=== PATIENT | female | born 1970 | race Caucasian/White ===

== ENCOUNTER 2016-08-29 11:43 | Emergency (ER) | payer OTHER ==
[~2016-08-29] VITALS: Ht 121.9 cm; Wt 48.0 kg
[~2016-08-29 11:43] MED LIST: BENT20TA PO; ZOFR4TAB3 SL
[2016-08-29 11:59] VITALS: BP 108/69; PULSE 90; RESP 16; TEMP 98.1
[2016-08-29 12:06] VITALS: PULSE 78
--- NOTE | 2016-08-29 13:08 | PD ---
HPI . Lobo Act due to suicidal threats Chief Complaint: Psychiatric Symptoms Time Seen by Provider: 13:08 Travel History International Travel<30 days: No Contact w/Intl Traveler<30days: No Traveled to known affect area: No History of Present Illness HPI 45-year-old female with history of anxiety and tobaccoism here under Lobo act for suicidal threats towards her employer. Patient tells me that she lost her about a year and a half ago and has never dealt with his passing. She says that she decided to have approximately 6 beers last night and was hung over and couldn't make it to work. She decided to call in and somehow ended up at her job. At that point she made threats towards her employer and told them she would be in the morning. Patient was consequently Lobo acted. She is here now complaining of cough she's had for several days. She tells me is keeping her up at night. She denies any fever or chills. She has no other cold or flulike symptom complaints. She goes on to tell me that she was joking and had no intention of committing suicide. She is asking me how long her visit will take and if she will be out here in the next few hours she has things to do. She currently has a sitter with her. She is very loud and yelling in the room. She tells me, "I am a chihuahua and I am mean." PFSH Past Medical History Depression: Yes Diminished Hearing: No Tetanus Vaccination: Unknown ?: Not Past Surgical History Section: Yes (x2) Hysterectomy: Yes Tonsillectomy: Yes Social History Alcohol Use: Yes (4 beers last night and 1 today) Tobacco Use: Yes (1 ppd, 0800 today) Substance Use: No Allergies-Medications (Allergen,Severity, Reaction): Coded Allergies: Aspirin (Verified Allergy, Severe, SOB, 01/25/16) Sulfa (Verified Allergy, Mild, HIVES, 01/25/16) Penicillin (Verified Allergy, Unknown, 01/25/16) Reported Meds & Prescriptions Reported Meds & Active Scripts Active Proair Hfa 8.5 GM Inh (Albuterol Sulfate) 90 Mcg/Act Aer 2 Puff INH Q6H PRN 108 mcg/actuation Tessalon Perles (Benzonatate) 100 Mg Cap 100 Mg PO TID PRN 3 Days Macrobid (Nitrofurantoin Monohydrate Macrocrystals) 100 Mg Capsule 100 Mg PO BID 7 Days Prednisone 50 Mg Tab 50 Mg PO DAILY Bentyl (Dicyclomine HCl) 20 Mg Tab 20 Mg PO QID Zofran Odt (Ondansetron Odt) 4 Mg Tab 4 Mg SL Q6HR PRN Review of Systems General / Constitutional: No: Fever Eyes: No: Visual changes HENT: No: Headaches Cardiovascular: No: Chest Pain or Discomfort Respiratory: No: Shortness of Breath Gastrointestinal: No: Abdominal Pain Genitourinary: No: Dysuria Musculoskeletal: No: Pain Skin: No Rash Neurologic: No: Weakness Psychiatric: Positive: Anxiety, Depression, Suicidal Ideations Endocrine: No: Polydipsia Hematologic/Lymphatic: No: Easy Bruising Physical Exam Narrative GENERAL: AAO x 3, no acute distress, Well-nourished, well-developed patient. SKIN: Warm and dry. No visible rashes or bruising. HEAD: Normocephalic and atraumatic. EYES: No scleral icterus. No injection or drainage. EOM intact, PERRLA ENT: No nasal drainage noted. Mucous membranes pink. Airway patent. Mild posterior pharynx erythema without edema or exudates. Her knees with mild cerumen buildup bilaterally. NECK: Supple, trachea midline. No JVD. Neuropathy CARDIOVASCULAR: Regular rate and rhythm without murmurs, gallops, or rubs. RESPIRATORY: Breath sounds equally diminished bilaterally. She has scattered mild inspiratory wheezing bilaterally. No rhonchi or Rales GASTROINTESTINAL: Abdomen soft, non-tender, nondistended. EXTREMITIES: No cyanosis or edema. BACK: Nontender without obvious deformity. No CVA tenderness. NEURO: CN II through XII intact, access control officer strength equal bilaterally, upper and lower extremity strength 5 out of 5, no focal neuro deficits PSYCH: AAO x 3, anxious Data Data Last Documented VS Vital Signs Date Time Temp Pulse Resp B/P Pulse Ox O2 Delivery O2 Flow Rate FiO2 08/29/16 12:06 78 08/29/16 11:59 98.1 16 108/69 Orders Complete Blood Count With Diff (08/29/16 13:14) Comprehensive Metabolic Panel (08/29/16 13:14) Urinalysis - C+S If Indicated (08/29/16 13:14) Psych Screen (08/29/16 13:14) Drug Screen, Random Urine (08/29/16 13:14) Alcohol (Ethanol) (08/29/16 13:14) Chest, Single Ap (08/29/16 13:14) Nicotine 14 Mg Patch.24 Hr (Habitrol 14 (08/29/16 13:30) Lorazepam Inj (Ativan Inj) (08/29/16 13:30) Urine Culture (08/29/16 13:00) Labs Laboratory Tests Test 08/29/16 13:00 White Blood Count 12.0 TH/MM3 Red Blood Count 4.16 MIL/MM3 Hemoglobin 13.5 GM/DL Hematocrit 39.6 % Mean Corpuscular Volume 95.2 FL Mean Corpuscular Hemoglobin 32.5 PG Mean Corpuscular Hemoglobin 34.1 % Concent Red Cell Distribution Width 13.2 % Platelet Count 281 TH/MM3 Mean Platelet Volume 9.2 FL Neutrophils (%) (Auto) 78.6 % Lymphocytes (%) (Auto) 14.6 % Monocytes (%) (Auto) 6.0 % Eosinophils (%) (Auto) 0.0 % Basophils (%) (Auto) 0.8 % Neutrophils # (Auto) 9.4 TH/MM3 Lymphocytes # (Auto) 1.7 TH/MM3 Monocytes # (Auto) 0.7 TH/MM3 Eosinophils # (Auto) 0.0 TH/MM3 Basophils # (Auto) 0.1 TH/MM3 CBC Comment DIFF FINAL Differential Comment Urine Color YELLOW Urine Turbidity HAZY Urine pH 6.0 Urine Specific [place] 1.010 Urine Protein 30 mg/dL Urine Glucose (UA) NEG mg/dL Urine Ketones NEG mg/dL Urine Occult Blood NEG Urine Nitrite POS Urine Bilirubin NEG Urine Urobilinogen LESS THAN 2.0 MG/DL Urine Leukocyte Esterase LARGE Urine RBC 1 /hpf Urine WBC 120 /hpf Urine Squamous Epithelial 7 /hpf Cells Urine Bacteria MANY /hpf Urine Hyaline Casts 1 /lpf Microscopic Urinalysis Comment CULTURE INDICATED Sodium Level 135 MEQ/L Potassium Level 3.5 MEQ/L Chloride Level 98 MEQ/L Carbon Dioxide Level 27.1 MEQ/L Anion Gap 10 MEQ/L Blood Urea Nitrogen 2 MG/DL Creatinine 0.70 MG/DL Estimat Glomerular Filtration 90 ML/MIN Rate Random Glucose 120 MG/DL Calcium Level 8.4 MG/DL Total Bilirubin 0.2 MG/DL Aspartate Amino Transf 21 U/L (AST/SGOT) Alanine Aminotransferase 32 U/L (ALT/SGPT) Alkaline Phosphatase 76 U/L Total Protein 7.7 GM/DL Albumin 4.0 GM/DL Urine Opiates Screen NEG Urine Barbiturates Screen NEG Urine Amphetamines Screen NEG Urine Benzodiazepines Screen NEG Urine Cocaine Screen NEG Urine Cannabinoids Screen NEG Ethyl Alcohol Level 299 MG/DL MDM Medical Decision Making Medical Screen Exam Complete: Yes Emergency Medical Condition: Yes Medical Record Reviewed: Yes Differential Diagnosis Suicidal ideation, anxiety, depression, grief reaction Narrative Course This is a 45-year-old female here under Lobo act. Patient does report frequent coughing for the past several days. Does have very slight inspiratory wheezing on physical exam. I will check a chest x-ray to make sure there is no acute infectious process. This appears to be a case of bronchitis and she does have a longstanding smoking history. If there are no acute findings on the chest x-ray, I will go ahead and treat her with a course of steroids. Labs have been ordered and if they are within normal limits, she will be cleared for psych screen. She was given ativan as she was very loud and disruptive to staff and other patients. Last Impressions Chest X-Ray 08/29/16 1314 Signed Impressions: Service Date/Time: August 13:36 - CONCLUSION: 1. No acute cardiopulmonary disease. Jef Raza MD Laboratory Tests Test 08/29/16 13:00 White Blood Count 12.0 TH/MM3 Red Blood Count 4.16 MIL/MM3 Hemoglobin 13.5 GM/DL Hematocrit 39.6 % Mean Corpuscular Volume 95.2 FL Mean Corpuscular Hemoglobin 32.5 PG Mean Corpuscular Hemoglobin 34.1 % Concent Red Cell Distribution Width 13.2 % Platelet Count 281 TH/MM3 Mean Platelet Volume 9.2 FL Neutrophils (%) (Auto) 78.6 % Lymphocytes (%) (Auto) 14.6 % Monocytes (%) (Auto) 6.0 % Eosinophils (%) (Auto) 0.0 % Basophils (%) (Auto) 0.8 % Neutrophils # (Auto) 9.4 TH/MM3 Lymphocytes # (Auto) 1.7 TH/MM3 Monocytes # (Auto) 0.7 TH/MM3 Eosinophils # (Auto) 0.0 TH/MM3 Basophils # (Auto) 0.1 TH/MM3 CBC Comment DIFF FINAL Differential Comment Urine Color YELLOW Urine Turbidity HAZY Urine pH 6.0 Urine Specific [place] 1.010 Urine Protein 30 mg/dL Urine Glucose (UA) NEG mg/dL Urine Ketones NEG mg/dL Urine Occult Blood NEG Urine Nitrite POS Urine Bilirubin NEG Urine Urobilinogen LESS THAN 2.0 MG/DL Urine Leukocyte Esterase LARGE Urine RBC 1 /hpf Urine WBC 120 /hpf Urine Squamous Epithelial 7 /hpf Cells Urine Bacteria MANY /hpf Urine Hyaline Casts 1 /lpf Microscopic Urinalysis Comment CULTURE INDICATED Sodium Level 135 MEQ/L Potassium Level 3.5 MEQ/L Chloride Level 98 MEQ/L Carbon Dioxide Level 27.1 MEQ/L Anion Gap 10 MEQ/L Blood Urea Nitrogen 2 MG/DL Creatinine 0.70 MG/DL Estimat Glomerular Filtration 90 ML/MIN Rate Random Glucose 120 MG/DL Calcium Level 8.4 MG/DL Total Bilirubin 0.2 MG/DL Aspartate Amino Transf 21 U/L (AST/SGOT) Alanine Aminotransferase 32 U/L (ALT/SGPT) Alkaline Phosphatase 76 U/L Total Protein 7.7 GM/DL Albumin 4.0 GM/DL Urine Opiates Screen NEG Urine Barbiturates Screen NEG Urine Amphetamines Screen NEG Urine Benzodiazepines Screen NEG Urine Cocaine Screen NEG Urine Cannabinoids Screen NEG Ethyl Alcohol Level 299 MG/DL Patient declined influenza testing. She tells the nurse that all she wants is something for her cough such as Tessalon Perles. Labs reviewed and reveal a urinary tract infection, which I have provided Macrobid for. By examination she also has bronchitis and I started her on steroids, Tessalon Perles and an inhaler as needed. Patient is now medically clear for psych screen. Diagnosis Primary Impression: Suicidal behavior Qualified Code: R46.89 - Suicidal behavior without attempted self-injury Additional Impressions: UTI (urinary tract infection) Qualified Code: N39.0 - Urinary tract infection without hematuria, site unspecified Acute bronchitis Qualified Code: J20.9 - Acute bronchitis, unspecified organism Scripts Albuterol 8.5 GM Inh (Proair Hfa 8.5 GM Inh)90 Mcg/Act Aer2 Puff INH Q6H PRN ( SHORTNESS OF BREATH) #1 INHALER Ref 0 108 mcg/actuation Prov:Yady Herrera MD 08/29/16 Benzonatate (Tessalon Perles)100 Mg Pkg565 Mg PO TID PRN (COUGH) 3 Days Ref 0 Prov:Yady Herrera MD 08/29/16 Nitrofurantoin Monohydrate Macrocrystals (Macrobid)100 Mg Basbzgn781 Mg PO BID 7 Days Ref 0 Prov:Yady Herrera MD 08/29/16 Prednisone 50 Mg Tab50 Mg PO DAILY #5 TAB Prov:Yady Herrera MD 08/29/16 Condition: Stable Gi Pan Aug 29, 2016 13:08
[2016-08-29] MEDS ORDERED: LORazepam 2 MG/ML VIAL IM ONE (13:30)
[2016-08-29] MEDS ORDERED: NICOTINE 14 MG/24 HR PATCH T-DERMAL ONE (13:30)
[2016-08-29 13:47] LABS: AUTOMATED NEUTROPHIL # 9.4 TH/MM3 (1.8-7.7); BASOPHIL # 0.1 TH/MM3 (0-0.2); BASOPHIL % 0.8 % (0.0-2.0); HEMATOCRIT 39.6 % (35.0-46.0); HEMO FLAGS DIFF FINAL; LYMPH % 14.6 % (9.0-44.0); LYMPHOCYTE # 1.7 TH/MM3 (1.0-4.8); MEAN CELL VOLUME 95.2 FL (80.0-100.0); MEAN CORPUSCULAR HEMOGLOBIN 32.5 PG (27.0-34.0); MEAN CORPUSCULAR HGB CONC 34.1 % (32.0-36.0); NEUT % 78.6 % (16.0-70.0); PLATELET COUNT 281 TH/MM3 (150-450); RED BLOOD COUNT 4.16 MIL/MM3 (4.00-5.30); RED CELL DISTRIBUTION WIDTH 13.2 % (11.6-17.2)
[2016-08-29 13:50] LABS: BACTERIA, URINE MANY /hpf; BLOOD, URINE NEG (NEG); COMMENT (UR) CULTURE INDICATED; CULTURE IF INDICATED CULTURE INDICATED; GLUCOSE,URINE NEG (NEG); HYALINE CAST, URINE 1 /lpf (RARE); KETONE, URINE NEG (NEG); SQUAMOUS EPITHELIAL CELL URINE 7 /hpf (0-5); URINE COLOR YELLOW (YELLW/STRAW)
[2016-08-29 13:53] LABS: NITRITE,URINE POS (NEG)
[2016-08-29 14:02] LABS: ALT (GPT) 32 U/L (10-53); ANION GAP 10 MEQ/L (5-15); AST (GOT) 21 U/L (15-37); BICARBONATE 27.1 MEQ/L (21.0-32.0); BLOOD UREA NITROGEN 2 MG/DL (7-18); CHLORIDE 98 MEQ/L (98-107); GLOMERULAR FILTRATION RATE 90 ML/MIN (>89); POTASSIUM 3.5 MEQ/L (3.5-5.1); SODIUM (NA) 135 MEQ/L (136-145)
[2016-08-29 14:04] LABS: ALKALINE PHOSPHATASE 76 U/L (45-117); TOTAL BILIRUBIN ADULT 0.2 MG/DL (0.2-1.0)
[2016-08-29 14:08] LABS: AMPHETAMINE, URINE NEG (NEG); BARBITURATES, URINE NEG (NEG); COCAINE, URINE NEG (NEG)
--- NOTE | 2016-08-29 14:13 | RADRPT ---
EXAM DATE/TIME: 08/29/2016 13:36 [facility] COMPARISON: No previous studies available for comparison. INDICATIONS : Shortness of breath and cough. MEDICAL HISTORY : None. SURGICAL HISTORY : None. ENCOUNTER: Initial ACUITY: 1 month PAIN SCORE: 0/10 LOCATION: Bilateral chest FINDINGS: A single view of the chest demonstrates the lungs to be symmetrically aerated without evidence of mas s, infiltrate or effusion. The cardiomediastinal contours are unremarkable. Osseous structures are intact. Subtle S-shaped scoliosis of the thoracic spine. CONCLUSION: 1. No acute cardiopulmonary disease. Jef Raza MD on August 29, 2016 at 14:10 Board Certified Radiologist. This report was verified electronically.
[2016-08-29] MEDS ORDERED: PRED50 PO (14:51)
[2016-08-29] MEDS ORDERED: MACR100C2 PO (14:51)
[2016-08-29] MEDS ORDERED: ALBUAER3 INH (14:51)
[2016-08-29] MEDS ORDERED: BENZ100 PO (14:51)
[2016-08-29 18:35] VITALS: BP 101/75; PULSE 106; RESP 18; TEMP 98.5; O2SAT 98
[2016-08-29] MEDS ORDERED: diphenhydrAMINE HCL 50 MG CAP PO PRN (21:00)
[2016-08-29 22:46] VITALS: BP 113/66; PULSE 110; RESP 18; O2SAT 98
[2016-08-30 02:45] VITALS: BP 135/93; PULSE 93; RESP 20
[2016-08-30] MEDS ORDERED: MACR100C2 PO (17:34)
[2016-08-30] MEDS ORDERED: BENZ100 PO (17:34)
[2016-08-30] MEDS ORDERED: PRED50 PO (17:34)
[2016-08-30] MEDS ORDERED: ALBUAER3 INH (17:34)
== END 2016-08-30 06:11 ==
LOC: NEPD 11:43 → NEPJ 08-30 06:11
DX: R45.851 Suicidal ideations (principal); N39.0 Urinary tract infection, site not specified; B96.20 Unspecified Escherichia coli [E. coli] as the cause of diseases classified elsewhere; J20.9 Acute bronchitis, unspecified; F17.200 Nicotine dependence, unspecified, uncomplicated
CPT/HCPCS: 71010; 80053; 80307; 81001; 85025; 87077; 87086; 87186; 96372; 99284; J2060; Q0163

== ENCOUNTER 2016-09-04 11:50 | Inpatient (IN) | payer SELFPAY ==
[~2016-09-04] VITALS: Ht 157.5 cm; Wt 60.5 kg
[2016-09-04] VITALS (10 sets, daily range): BP systolic 110–123; BP diastolic 81–111; PULSE 79–97; RESP 20; TEMP 97.2–99.1; O2SAT 100
[~2016-09-04 11:50] MED LIST changes: +ALBUAER3 INH; +BENZ100 PO; +MACR100C2 PO; +PRED50 PO; +SODIUM BICARBONATE 8.4% INJ 50 MEQ/50 ML SYR IV ONE
[2016-09-04] MEDS ORDERED: ceFAZolin 2 GM PREMIX 50 ML ONE (12:00)
[2016-09-04] MEDS ORDERED: ceFAZolin 2 GM PREMIX 50 ML IV STA (12:22)
[2016-09-04] MEDS ORDERED: DIPHTH/TETANUS/ACEL PERTUSSIS (BOOSTER) 0.5 ML VIAL/PFS IM ONE (12:22)
[2016-09-04 12:23] LABS: BASOPHIL # 0.1 TH/MM3 (0-0.2); BASOPHIL % 0.5 % (0.0-2.0); EOSINOPHIL % 0.2 % (0.0-4.0); HEMATOCRIT 37.8 % (35.0-46.0); LYMPH % 27.9 % (9.0-44.0); LYMPHOCYTE # 4.3 TH/MM3 (1.0-4.8); MEAN CELL VOLUME 98.3 FL (80.0-100.0); MEAN CORPUSCULAR HEMOGLOBIN 32.6 PG (27.0-34.0); MEAN CORPUSCULAR HGB CONC 33.2 % (32.0-36.0); MONO % 6.5 % (0.0-8.0); NEUT % 64.9 % (16.0-70.0); PLATELET COUNT 377 TH/MM3 (150-450); RED BLOOD COUNT 3.85 MIL/MM3 (4.00-5.30); RED CELL DISTRIBUTION WIDTH 13.8 % (11.6-17.2); WHITE BLOOD COUNT 15.4 TH/MM3 (4.0-11.0)
[2016-09-04 12:24] LABS: HEMO FLAGS AUTO DIFF
[2016-09-04 12:25] LABS: I-STAT POTASSIUM 3.5 MMOL/L (3.5-4.9)
[2016-09-04 12:27] LABS: APTT (PATIENT) 26.9 SEC (24.3-30.1); PROTHROMBIN TIME - PATIENT 10.8 SEC (9.8-11.6)
[2016-09-04] MEDS ORDERED: PHENYLEPHRINE HCL 10 MG/ML VIAL ONE (12:27)
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
[2016-09-04] MEDS ORDERED: MISCELLANEOUS NURSING INFORMATION XX SCH (12:45)
[2016-09-04] MEDS ORDERED: SENNOSIDES 8.6 MG TAB PO PRN (12:45)
[2016-09-04] MEDS ORDERED: BISACODYL 10 MG SUPP RECTAL PRN (12:45)
[2016-09-04] MEDS ORDERED: LACTULOSE SYRUP 20 GM/30 ML CUP PO PRN (12:45)
[2016-09-04] MEDS ORDERED: CHLORHEXIDINE GLUCONATE 2 % 1 PACK (2 CLOTHS) TOP PRN (12:45)
[2016-09-04] MEDS ORDERED: MAGNESIUM HYDROXIDE SUSP 30 ML CUP PO PRN (12:45)
[2016-09-04] MEDS ORDERED: SODIUM CHLORIDE 0.9% FLUSH 10 ML FLUSH IV FLUSH PRN (12:45)
[2016-09-04 12:56] LABS: BANDS 10 % (0-6); BASOPHILS 1 % (0-2); CORRECTED NUCLEATED RBC 3 /100 WBC (0-0); METAMYELOCYTES 3 % (0-1); POLYS (SEG NEUTROPHILS) 52 % (16-70); SCAN/DIFF FINAL DIFF MANUAL; WBC DIFF SAMPLE 100
[2016-09-04] MEDS: DOCUSATE SODIUM 50 MG/SENNA 8.6 MG TAB PO SCH ×2 (13:00→21:00)
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
[2016-09-04] MEDS ORDERED: PROPOFOL 1000 MG/100 ML INJ 100 ML ONE (13:15)
[2016-09-04] MEDS ORDERED: levETIRAcetam 1000 MG INJ 100 ML IV STA (13:28)
[2016-09-04] MEDS ORDERED: PROPOFOL 1000 MG/100 ML INJ 100 ML IV SCH (13:30)
[2016-09-04 13:57] LABS: BICARBONATE 16.2 MEQ/L (21.0-32.0); CALCIUM-PROTEIN CORRECTED 7.5 MG/DL (8.5-10.1); MAGNESIUM 2.2 MG/DL (1.5-2.5); TOTAL BILIRUBIN ADULT 0.2 MG/DL (0.2-1.0)
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
[2016-09-04 14:02] LABS: AUTOMATED NEUTROPHIL # 13.5 TH/MM3 (1.8-7.7); BASOPHIL % 0.1 % (0.0-2.0); EOSINOPHIL % 0.2 % (0.0-4.0); HEMATOCRIT 35.1 % (35.0-46.0); HEMO FLAGS DIFF FINAL; LYMPH % 6.1 % (9.0-44.0); LYMPHOCYTE # 0.9 TH/MM3 (1.0-4.8); MEAN CELL VOLUME 98.6 FL (80.0-100.0); MEAN CORPUSCULAR HEMOGLOBIN 32.1 PG (27.0-34.0); MEAN CORPUSCULAR HGB CONC 32.6 % (32.0-36.0); MONO % 3.5 % (0.0-8.0); NEUT % 90.1 % (16.0-70.0); PLATELET COUNT 377 TH/MM3 (150-450); RED BLOOD COUNT 3.56 MIL/MM3 (4.00-5.30); RED CELL DISTRIBUTION WIDTH 13.3 % (11.6-17.2)
[2016-09-04 14:11] LABS: APTT (PATIENT) 23.9 SEC (24.3-30.1); PROTHROMBIN TIME - PATIENT 10.8 SEC (9.8-11.6)
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
[2016-09-04 15:05] LABS: BLOOD GAS BASE EXCESS -12.9 mmol/L (-2-2); BLOOD GAS CARBOXYHEMOGLOBIN 4.4 % (0-4); BLOOD GAS HCO3 14 mmol/L (22-26); BLOOD GAS METHEMOGLOBIN 1.1 % (0-2); BLOOD GAS O2 HGB SATURATION 94 % (90-100); BLOOD GAS OXYGEN CONTENT 16.2 Vol % (12.0-20.0); BLOOD GAS PCO2 37 mmHg (38-42); BLOOD GAS PO2 490 mmHg (61-120); BLOOD GAS TOTAL HGB 11.3 G/DL (12.0-16.0); TEMP CORR TO 98.6
[2016-09-04 15:06] LABS: CRITICAL VALUE YES; OXYGEN DEVICE VENT
[2016-09-04 15:07] LABS: DRAW SITE ALINE; FIO2 100 %; STAT YES; VENT SETTINGS AC/20/550/5PEEP
--- NOTE | 2016-09-04 15:26 | RADRPT ---
EXAM DATE/TIME: 09/04/2016 14:34 [facility] COMPARISON: No previous studies available for comparison. INDICATIONS : Evaluate for OG tube placement. MEDICAL HISTORY : Unobtainable. SURGICAL HISTORY : Unobtainable. ENCOUNTER: Subsequent ACUITY: 1 day PAIN SCORE: Non-responsive. LOCATION: Chest FINDINGS: The nasogastric tube is coiled in the stomach with its tip directed towards the fundus. CONCLUSION: Nasogastric tube is coiled in the stomach with its tip directed into the gastric fundus. Loyd Holt MD on September 04, 2016 at 15:20 Board Certified Radiologist. This report was verified electronically.
[2016-09-04] MEDS ORDERED: NOREPINEPHRINE 4 MG/4 ML AMP ONE (15:47)
[2016-09-04] MEDS ORDERED: CALCIUM GLUCONATE INJ 2 GM in DEXTROSE 5% IN WATER 100ML INJ 100 ML IV ONE ×2 (16:00)
[2016-09-04] MEDS: PIPERACIL-TAZO 3.375 GM PREMIX 50 ML IV SCH ×2 (16:06→21:25)
[2016-09-04] MEDS: SODIUM CHLORIDE 0.9% FLUSH 10 ML FLUSH IV FLUSH SCH ×2 (16:07→21:25)
[2016-09-04] MEDS: SODIUM CHLOR 0.9% 1000 ML INJ 1,000 ML IV SCH ×2 (16:08→23:00)
[2016-09-04] MEDS: PANTOPRAZOLE SODIUM 40 MG VIAL IV SCH (17:18)
--- NOTE | 2016-09-04 17:33 | PD.PROCEDR ---
Central Line Procedure REASON FOR PROCEDURE Central venous access PROCEDURE PERFORMED Central line placement: Left femoral vein CONSENT Informed consent for procedure was not obtained as this was an emergent procedure following cardiac arrest ANESTHESIA None as patient nonresponsive following CPR DESCRIPTION OF THE PROCEDURE The patient was placed in supine position. The area was exposed and cleansed with ChloraPrep, times two. Large sterile drape was used to cover the patient, with the site exposed, under sterile conditions including cap, face mask, sterile gown, and sterile gloves. On single attempt, the introducer needle was inserted with negative pressure in syringe and venous flash was obtained. The guide wire was then advanced without any restriction and the needle was removed. The dilator was used without any complications. Using Seldinger technique a 20 cm antimicrobial coated triple lumen catheter was advanced over the guide wire to a depth of 19 centimeters. The guide wire was removed. All ports were aspirated with dark venous blood return and flushed easily with sterile saline. All ports were capped. Antibiotic disc was placed around central line at puncture site. The central line was secured to the skin with two interrupted 2.0 silk sutures. The area was bandaged with sterile see- through central line bandage. COMPLICATIONS: No apparent complications ESTIMATED BLOOD LOSS: 2 cc. Kamlesh Powell MD Sep 04, 2016 17:33
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
[2016-09-04] MEDS: CHLORHEXIDINE 0.12% (ORAL KIT) 15 ML CUP MT SCH (20:00)
[2016-09-04 20:12] LABS: BLOOD GAS BASE EXCESS -6.1 mmol/L (-2-2); BLOOD GAS CARBOXYHEMOGLOBIN 0.9 % (0-4); BLOOD GAS HCO3 19 mmol/L (22-26); BLOOD GAS METHEMOGLOBIN 1.1 % (0-2); BLOOD GAS O2 HGB SATURATION 98 % (90-100); BLOOD GAS OXYGEN CONTENT 16.8 Vol % (12.0-20.0); BLOOD GAS PCO2 35 mmHg (38-42); BLOOD GAS PO2 258 mmHg (61-120); BLOOD GAS TOTAL HGB 11.8 G/DL (12.0-16.0); CRITICAL VALUE NO; OXYGEN DEVICE VENTILATOR; TEMP CORR TO 98.6
[2016-09-04 20:13] LABS: DRAW SITE ART LINE; FIO2 50 %; STAT NO; VENT SETTINGS AC/20/500/PEEP5
[2016-09-04] MEDS ORDERED: PHENYLEPHRINE 40 MG/D5W 496 ML ADMIX IV SCH ×2 (20:15)
[2016-09-04] MEDS ORDERED: NOREPINEPHRINE 4 MG/D5W 250 ML IV SCH (20:15)
[2016-09-04] MEDS ORDERED: TERBUTALINE INJ 1 MG/ML AMP SQ PRN (20:15)
[2016-09-04] MEDS ORDERED: PHENYLEPHRINE INJ 40 MG in SODIUM CHLORID 0.9% 500 ML INJ 496 ML IV SCH (20:38)
[2016-09-04] MEDS ORDERED: NOREPINEPHRINE INJ 4 MG in SODIUM CHLOR 0.9% 250 ML INJ 246 ML IV SCH (20:45)
[2016-09-04] MEDS: levETIRAcetam 1000 MG INJ 100 ML IV SCH (21:25)
[2016-09-05] VITALS (18 sets, daily range): BP systolic 103–128; BP diastolic 67–95; PULSE 70–84; RESP 20; TEMP 97.5–98; O2SAT 100
[2016-09-05] MEDS: PROPOFOL 1000 MG/100 ML INJ 100 ML IV SCH ×4 (00:17→19:58)
[2016-09-05] MEDS: CHLORHEXIDINE GLUCONATE 2 % 1 PACK (2 CLOTHS) TOP SCH (04:00)
[2016-09-05] MEDS: PIPERACIL-TAZO 3.375 GM PREMIX 50 ML IV SCH ×4 (04:06→21:49)
[2016-09-05 04:14] LABS: AUTOMATED NEUTROPHIL # 11.6 TH/MM3 (1.8-7.7); BASOPHIL % 0.1 % (0.0-2.0); HEMO FLAGS DIFF FINAL; LYMPHOCYTE # 0.4 TH/MM3 (1.0-4.8); MEAN CELL VOLUME 95.4 FL (80.0-100.0); MEAN CORPUSCULAR HEMOGLOBIN 32.2 PG (27.0-34.0); MEAN CORPUSCULAR HGB CONC 33.7 % (32.0-36.0); MONO % 6.1 % (0.0-8.0); NEUT % 90.8 % (16.0-70.0); PLATELET COUNT 206 TH/MM3 (150-450); RED BLOOD COUNT 3.25 MIL/MM3 (4.00-5.30); RED CELL DISTRIBUTION WIDTH 13.1 % (11.6-17.2); WHITE BLOOD COUNT 12.8 TH/MM3 (4.0-11.0)
[2016-09-05 04:18] LABS: APTT (PATIENT) 26.7 SEC (24.3-30.1); PROTHROMBIN TIME - PATIENT 10.7 SEC (9.8-11.6)
[2016-09-05 04:39] LABS: BICARBONATE 22.1 MEQ/L (21.0-32.0); MAGNESIUM 1.5 MG/DL (1.5-2.5)
[2016-09-05 04:45] LABS: POTASSIUM 2.9 MEQ/L (3.5-5.1)
[2016-09-05 05:02] LABS: BLOOD GAS BASE EXCESS -3.2 mmol/L (-2-2); BLOOD GAS CARBOXYHEMOGLOBIN 1.2 % (0-4); BLOOD GAS HCO3 21 mmol/L (22-26); BLOOD GAS METHEMOGLOBIN 0.9 % (0-2); BLOOD GAS O2 HGB SATURATION 97 % (90-100); BLOOD GAS OXYGEN CONTENT 14.3 Vol % (12.0-20.0); BLOOD GAS PCO2 33 mmHg (38-42); BLOOD GAS PO2 153 mmHg (61-120); BLOOD GAS TOTAL HGB 10.2 G/DL (12.0-16.0); CRITICAL VALUE NO; DRAW SITE ART LINE; FIO2 40 %; OXYGEN DEVICE VENTILATOR; STAT NO; TEMP CORR TO 98.6; VENT SETTINGS AC20/500/5PEEP
[2016-09-05 05:07] LABS: CALCIUM-PROTEIN CORRECTED 7.6 MG/DL (8.5-10.1)
[2016-09-05] MEDS ORDERED: POTASSIUM CHLOR 20 MEQ PREMIX 100 ML IV PRN ×2 (06:00)
[2016-09-05] MEDS ORDERED: MAGNESIUM SULFATE INJ 4 GM in SODIUM CHLORIDE 0.9% INJ 92 ML IV PRN (06:00)
[2016-09-05] MEDS ORDERED: POTASSIUM CHLORIDE 25 MEQ EFFERVESCENT TAB PO PRN (06:00)
[2016-09-05] MEDS ORDERED: POTASSIUM PHOSPHATE MONOBASIC 500 MG TAB PO/TUBE PRN (06:00)
[2016-09-05] MEDS ORDERED: POTASSIUM CHLOR 40 MEQ PREMIX 100 ML IV PRN (06:00)
[2016-09-05] MEDS ORDERED: POTASSIUM PHOSPHATE INJ 30 MMOL in SODIUM CHLOR 0.9% 250 ML INJ 250 ML IV PRN (06:00)
[2016-09-05] MEDS ORDERED: POTASSIUM PHOSPHATE MONOBASIC 500 MG TAB PO PRN (06:00)
[2016-09-05] MEDS ORDERED: MAGNESIUM SULFATE INJ 2 GM in SODIUM CHLORIDE 0.9% INJ 96 ML IV PRN (06:00)
[2016-09-05] MEDS ORDERED: MAGNESIUM OXIDE 400 MG TAB PO PRN (06:00)
[2016-09-05] MEDS ORDERED: SODIUM PHOSPHATE INJ 30 MMOL in SODIUM CHLOR 0.9% 250 ML INJ 240 ML IV PRN (06:00)
--- NOTE | 2016-09-05 06:06 | RADRPT ---
EXAM DATE/TIME: 09/05/2016 04:16 [facility] COMPARISON: No previous studies available for comparison. INDICATIONS : Shortness of breath MEDICAL HISTORY : Unobtainable SURGICAL HISTORY : Unobtainable ENCOUNTER: Subsequent ACUITY: 1 day PAIN SCORE: Non-responsive. LOCATION: Bilateral chest FINDINGS: The lungs are clear without infiltrate, nodule, or mass. There is no appreciable pleural effusion fo r technique. Heart and mediastinum are unremarkable. NG tube is present with tip in the stomach. The re is a displaced fracture of right sixth rib with a subtle fracture of the seventh rib as well. No d efinite pneumothorax is seen for technique. CONCLUSION: Right sided rib fractures. Cristy Santos MD on September 05, 2016 at 6:03 Board Certified Radiologist. This report was verified electronically.
[2016-09-05] MEDS: levETIRAcetam 1000 MG INJ 100 ML IV SCH ×2 (08:36→21:49)
[2016-09-05] MEDS: CHLORHEXIDINE 0.12% (ORAL KIT) 15 ML CUP MT SCH ×2 (08:36→22:00)
[2016-09-05] MEDS: SODIUM CHLOR 0.9% 1000 ML INJ 1,000 ML IV SCH ×3 (08:36→22:20)
[2016-09-05] MEDS: PANTOPRAZOLE SODIUM 40 MG VIAL IV SCH (08:36)
[2016-09-05] MEDS: SODIUM CHLORIDE 0.9% FLUSH 10 ML FLUSH IV FLUSH SCH ×2 (08:37→22:00)
[2016-09-05] MEDS: DOCUSATE SODIUM 50 MG/SENNA 8.6 MG TAB PO SCH ×2 (08:37→21:59)
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
[2016-09-05 13:43] LABS: BLOOD, URINE NEG (NEG); GLUCOSE,URINE NEG (NEG); KETONE, URINE NEG (NEG); MUCUS URINE FEW /lpf (OCC); NITRITE,URINE NEG (NEG); SQUAMOUS EPITHELIAL CELL URINE <1 /hpf (0-5); URINE COLOR YELLOW (YELLW/STRAW)
[2016-09-05 14:01] LABS: COMMENT (UR) CATH-CULT NOT IND; CULTURE IF INDICATED CATH CULTURE NOT IND
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
[2016-09-05] MEDS ORDERED: ATROPINE SULFATE 1 MG/10 ML SYRINGE ONE (21:26)
[2016-09-05] MEDS ORDERED: ATROPINE SULFATE 1 MG/10 ML SYRINGE IV PUSH ONE (21:30)
[2016-09-06] VITALS (18 sets, daily range): BP systolic 105–137; BP diastolic 61–86; PULSE 65–80; RESP 20; TEMP 96.6–98.6; O2SAT 100
[2016-09-06] MEDS: SODIUM CHLOR 0.9% 1000 ML INJ 1,000 ML IV SCH ×5 (01:01→17:56)
[2016-09-06] MEDS: PIPERACIL-TAZO 3.375 GM PREMIX 50 ML IV SCH ×4 (02:47→23:11)
[2016-09-06] MEDS: CHLORHEXIDINE GLUCONATE 2 % 1 PACK (2 CLOTHS) TOP SCH (03:48)
[2016-09-06 05:11] LABS: AUTOMATED NEUTROPHIL # 12.8 TH/MM3 (1.8-7.7); BASOPHIL % 0.2 % (0.0-2.0); EOSINOPHIL % 0.2 % (0.0-4.0); HEMATOCRIT 28.6 % (35.0-46.0); HEMO FLAGS DIFF FINAL; LYMPH % 6.5 % (9.0-44.0); MEAN CELL VOLUME 96.6 FL (80.0-100.0); MEAN CORPUSCULAR HEMOGLOBIN 32.2 PG (27.0-34.0); MEAN CORPUSCULAR HGB CONC 33.4 % (32.0-36.0); MONO % 5.7 % (0.0-8.0); NEUT % 87.4 % (16.0-70.0); PLATELET COUNT 191 TH/MM3 (150-450); RED BLOOD COUNT 2.96 MIL/MM3 (4.00-5.30); RED CELL DISTRIBUTION WIDTH 13.5 % (11.6-17.2); WHITE BLOOD COUNT 14.7 TH/MM3 (4.0-11.0)
[2016-09-06 05:43] LABS: BICARBONATE 21.2 MEQ/L (21.0-32.0); CALCIUM-PROTEIN CORRECTED 8.1 MG/DL (8.5-10.1); POTASSIUM 3.3 MEQ/L (3.5-5.1); TOTAL BILIRUBIN ADULT 0.3 MG/DL (0.2-1.0)
[2016-09-06] MEDS: PROPOFOL 1000 MG/100 ML INJ 100 ML IV SCH ×2 (06:27→23:13)
[2016-09-06] MEDS: levETIRAcetam 1000 MG INJ 100 ML IV SCH ×2 (07:35→23:10)
[2016-09-06] MEDS: PANTOPRAZOLE SODIUM 40 MG VIAL IV SCH (07:35)
[2016-09-06] MEDS: DOCUSATE SODIUM 50 MG/SENNA 8.6 MG TAB PO SCH ×2 (07:35→21:00)
[2016-09-06] MEDS: CHLORHEXIDINE 0.12% (ORAL KIT) 15 ML CUP MT SCH ×2 (07:35→20:00)
[2016-09-06] MEDS: SODIUM CHLORIDE 0.9% FLUSH 10 ML FLUSH IV FLUSH SCH ×2 (07:35→23:11)
[2016-09-06] MEDS ORDERED: PHENYTOIN INJ 1,000 MG in SODIUM CHLORIDE 0.9% INJ 100 ML IV ONE (08:30)
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
[2016-09-06] MEDS ORDERED: CALCIUM GLUCONATE INJ 2 GM in DEXTROSE 5% IN WATER 100ML INJ 100 ML IV ONE ×2 (09:00)
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
[2016-09-06] MEDS: PHENYTOIN INJ 100 MG/2 ML VIAL IV SCH ×2 (15:19→23:12)
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
[2016-09-06] MEDS ORDERED: HEPARIN SODIUM - SQ 10,000 UNITS/ML VIAL OTHER SCH (19:30)
[2016-09-06 21:03] LABS: AUTOMATED NEUTROPHIL # 11.3 TH/MM3 (1.8-7.7); BASOPHIL % 0.3 % (0.0-2.0); EOSINOPHIL % 0.4 % (0.0-4.0); HEMATOCRIT 28.2 % (35.0-46.0); HEMO FLAGS DIFF FINAL; LYMPH % 7.1 % (9.0-44.0); LYMPHOCYTE # 0.9 TH/MM3 (1.0-4.8); MEAN CELL VOLUME 97.5 FL (80.0-100.0); MEAN CORPUSCULAR HEMOGLOBIN 33.6 PG (27.0-34.0); MEAN CORPUSCULAR HGB CONC 34.5 % (32.0-36.0); MONO % 3.9 % (0.0-8.0); NEUT % 88.3 % (16.0-70.0); PLATELET COUNT 201 TH/MM3 (150-450); RED BLOOD COUNT 2.89 MIL/MM3 (4.00-5.30); RED CELL DISTRIBUTION WIDTH 13.9 % (11.6-17.2); WHITE BLOOD COUNT 12.7 TH/MM3 (4.0-11.0)
[2016-09-06 21:08] LABS: APTT (PATIENT) 26.6 SEC (24.3-30.1); BLOOD, URINE NEG (NEG); COMMENT (UR) CATH-CULT NOT IND; CULTURE IF INDICATED CATH CULTURE NOT IND; GLUCOSE,URINE 70 mg/dL (NEG); INTERNATIONAL NORMALIZED RATIO 0.9 RATIO; KETONE, URINE NEG (NEG); MUCUS URINE FEW /lpf (OCC); NITRITE,URINE NEG (NEG); PROTHROMBIN TIME - PATIENT 9.4 SEC (9.8-11.6); URINE COLOR YELLOW (YELLW/STRAW)
[2016-09-06 21:15] LABS: AMYLASE 31 U/L (25-115); ANION GAP 8 MEQ/L (5-15); BETA HCG QUANT LESS THAN 1 MIU/ML (0-5); BICARBONATE 21.7 MEQ/L (21.0-32.0); BLOOD UREA NITROGEN 3 MG/DL (7-18); CHLORIDE 115 MEQ/L (98-107); GAMMA GT 201 U/L (5-55); GLOMERULAR FILTRATION RATE 142 ML/MIN (>89); SODIUM (NA) 145 MEQ/L (136-145)
[2016-09-07] VITALS (15 sets, daily range): BP systolic 124–149; BP diastolic 70–94; PULSE 67–76; RESP 20; TEMP 96.8–97.7; O2SAT 0–100
[2016-09-07 01:21] LABS: ALKALINE PHOSPHATASE 115 U/L (45-117); ALT (GPT) 39 U/L (10-53); INDIRECT BILIRUBIN 0.3 MG/DL (0.0-0.8); TOTAL BILIRUBIN ADULT 0.4 MG/DL (0.2-1.0)
[2016-09-07 01:34] LABS: AST (GOT) 70 U/L (15-37)
[2016-09-07] MEDS: CHLORHEXIDINE GLUCONATE 2 % 1 PACK (2 CLOTHS) TOP SCH (04:00)
[2016-09-07] MEDS: SODIUM CHLOR 0.9% 1000 ML INJ 1,000 ML IV SCH ×3 (05:24→13:12)
[2016-09-07] MEDS: PIPERACIL-TAZO 3.375 GM PREMIX 50 ML IV SCH ×3 (05:25→16:38)
[2016-09-07] MEDS: PHENYTOIN INJ 100 MG/2 ML VIAL IV SCH ×2 (06:10→13:12)
[2016-09-07] MEDS: CHLORHEXIDINE 0.12% (ORAL KIT) 15 ML CUP MT SCH (08:07)
[2016-09-07] MEDS: SODIUM CHLORIDE 0.9% FLUSH 10 ML FLUSH IV FLUSH SCH (08:08)
[2016-09-07] MEDS: PANTOPRAZOLE SODIUM 40 MG VIAL IV SCH (08:30)
[2016-09-07] MEDS: levETIRAcetam 1000 MG INJ 100 ML IV SCH (08:30)
[2016-09-07] MEDS: DOCUSATE SODIUM 50 MG/SENNA 8.6 MG TAB PO SCH (08:31)
[2016-09-07 08:43] LABS: BLOOD, URINE NEG (NEG); GLUCOSE,URINE NEG (NEG); KETONE, URINE NEG (NEG); MUCUS URINE FEW /lpf (OCC); NITRITE,URINE NEG (NEG); URINE COLOR YELLOW (YELLW/STRAW)
[2016-09-07 08:44] LABS: COMMENT (UR) CATH-CULT NOT IND; CULTURE IF INDICATED CATH CULTURE NOT IND
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
[2016-09-07 09:17] LABS: ANION GAP 9 MEQ/L (5-15); AST (GOT) 32 U/L (15-37); BICARBONATE 21.3 MEQ/L (21.0-32.0); BLOOD UREA NITROGEN 3 MG/DL (7-18); CHLORIDE 118 MEQ/L (98-107); GLOMERULAR FILTRATION RATE 142 ML/MIN (>89); POTASSIUM 3.1 MEQ/L (3.5-5.1); SODIUM (NA) 148 MEQ/L (136-145)
[2016-09-07 09:25] LABS: ALKALINE PHOSPHATASE 102 U/L (45-117); ALT (GPT) 29 U/L (10-53); TOTAL BILIRUBIN ADULT 0.3 MG/DL (0.2-1.0)
[2016-09-07] MEDS: POTASSIUM CHLOR 40 MEQ PREMIX 100 ML IV PRN ×2 (09:39→12:31)
[2016-09-07] MEDS: PROPOFOL 1000 MG/100 ML INJ 100 ML IV SCH (09:59)
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
--- NOTE | 2016-09-07 13:01 | RADRPT ---
EXAM DATE/TIME: 09/07/2016 12:13 [facility] COMPARISON: No previous studies available for comparison. INDICATIONS : Evaluation for organ donation. MEDICAL HISTORY : Peripheral vascular disease. Asthma. Dyspnea. GERD. Renal disease. Anemia. Depression. Anxiety. S ubstance use. SURGICAL HISTORY : Hysterectomy. section. ENCOUNTER: Initial ACUITY: 1 day PAIN SCORE: Nonresponsive. LOCATION: Bilateral upper quadrant MEASUREMENTS: LIVER: 17.0 cm length COMMON DUCT: 2 mm RIGHT KIDNEY: 10.2 x 4.5 x 3.9 cm SPLEEN: 8.3 cm length FINDINGS: LIVER: Normal echotexture without focal lesion or ductal dilatation. Main portal vein is patent with hepatop edal blood flow. There is trace perihepatic free fluid. COMMON DUCT: No intraluminal mass or stone visualized. GALLBLADDER: Gallbladder demonstrates diffuse wall thickening with edema. No stones are present. There is a 3 mm p olyp. PANCREAS: The visualized portions are within normal limits. RIGHT KIDNEY: No hydronephrosis, stone or mass. There is isoechoic solid vascularized tissue extending into the re nal sinus measuring 2.4 x 1.8 x 2.4 cm. SPLEEN: No focal lesion. There is a right pleural effusion. CONCLUSION: 1. Liver demonstrates a normal ultrasound appearance. 2. There is severe diffuse gallbladder wall thickening with edema. 3. Right pleural effusion with trace perihepatic fluid. 4. There is solid vascularized tissue extending into the right renal sinus measuring up to 2.4 cm. Th is likely represents normal renal parenchyma. However, if renal donation is considered is being consi dered, consider cross-sectional imaging for further evaluation. Darius Lin MD on September 07, 2016 at 12:54 Board Certified Radiologist. This report was verified electronically.
[2016-09-07] MEDS ORDERED: MORPHINE SULFATE 8 MG/ML INJ IV PUSH ONE (13:30)
[2016-09-07] MEDS ORDERED: LORazepam 2 MG/ML VIAL IV ONE ×2 (13:30→13:45)
[2016-09-07] MEDS ORDERED: HYOSCYAMINE 0.5 MG/ML AMP IV ONE (13:30)
[2016-09-07] MEDS ORDERED: MORPHINE SULFATE 4 MG/ML INJ IV ONE (13:45)
--- NOTE | 2016-09-07 13:54 | RADRPT ---
EXAM DATE/TIME: 09/07/2016 13:32 [facility] COMPARISON: CHEST SINGLE AP, September 05, 2016, 4:16. INDICATIONS : Short of breath. MEDICAL HISTORY : Peripheral vascular disease. Asthma. Dyspnea. GERD. Renal disease. Anemia. SURGICAL HISTORY : Hysterectomy. section. ENCOUNTER: Subsequent ACUITY: 2 days PAIN SCORE: Non-responsive. LOCATION: Bilateral chest FINDINGS: Portable AP view of the chest demonstrates a normal-sized cardiac silhouette. Tracheostomy rings pres ent in nasogastric tube courses beyond the GE junction. EKG lines overlie the patient. No pleural eff usion, airspace consolidation, or pneumothorax is identified. The right sixth and seventh rib fractur es remain visualized. No other acute osseous abnormality is seen. CONCLUSION: 1. No acute cardiopulmonary abnormality is identified. 2. Right sixth and seventh rib fractures remain visualized. Darius Lin MD on September 07, 2016 at 13:49 Board Certified Radiologist. This report was verified electronically.
[2016-09-07] MEDS ORDERED: LORazepam 2 MG/ML VIAL IVS PRN (14:00)
[2016-09-07] MEDS ORDERED: HYOSCYAMINE 0.5 MG/ML AMP IV PRN (14:00)
[2016-09-07] MEDS ORDERED: FUROSEMIDE 20 MG/2 ML VIAL IV PRN (14:00)
[2016-09-07] MEDS ORDERED: MORPHINE SULFATE 4 MG/ML INJ IV PRN (14:00)
[2016-09-07] MEDS ORDERED: MORPHINE SULFATE 8 MG/ML INJ IV PUSH PRN (14:00)
[2016-09-07] MEDS ORDERED: LORazepam 2 MG/ML VIAL IV PRN ×2 (14:00)
[2016-09-07] MEDS ORDERED: HEPARIN SODIUM - IV 2,000 UNITS/2 ML VIAL IV ONE (14:15)
[2016-09-07] MEDS ORDERED: MORPHINE SULFATE 4 MG/ML INJ IV SCH (16:00)
[2016-09-07] MEDS ORDERED: LORazepam 2 MG/ML VIAL IV SCH (16:00)
[2016-09-08 10:02] LABS: HEMOGLOBIN A1a 1.3 %; HEMOGLOBIN A1b 0.8 %; HEMOGLOBIN Ao 85.9 %; HEMOGLOBIN F 0.9 %; HEMOGLOBIN P3 3.8 %
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
== END 2016-09-07 17:40 | disposition expired | DRG 52 ==
LOC: NEPI 11:50 → EDBD 12:19 → NEDA 12:19 → MERGE 12:19 → N03A 12:28
PROVIDERS: ADMIT Surgery Trauma Surgery; ATTEND Surgery Trauma Surgery
PROC: 06HN33Z Insertion of Infusion Device into Left Femoral Vein, Percutaneous Approach (ICD-10-PCS; principal; 2016-09-04)
PROC: 03HY32Z Insertion of Monitoring Device into Upper Artery, Percutaneous Approach (ICD-10-PCS; 2016-09-04)
PROC: 5A1945Z Respiratory Ventilation, 24-96 Consecutive Hours (ICD-10-PCS; 2016-09-04)
DX: J96.01 Acute respiratory failure with hypoxia; G93.6 Cerebral edema; R57.8 Other shock; I46.9 Cardiac arrest, cause unspecified; I95.9 Hypotension, unspecified; E87.6 Hypokalemia; G93.1 Anoxic brain damage, not elsewhere classified; S12.200 Unspecified displaced fracture of third cervical vertebra; R40.2432 Glasgow coma scale score 3-8, at arrival to emergency department; F17.210 Nicotine dependence, cigarettes, uncomplicated; Z51.5 Encounter for palliative care; Y92.832 Beach as the place of occurrence of the external cause; S12.300A Unspecified displaced fracture of fourth cervical vertebra, initial encounter for closed fracture
CPT/HCPCS: 36556; 70450; 70486; 71010; 72125; 74000; 76705; 76937; 80048; 80053; 80074; 80076; 81001; 82150; 82248; 82435; 82565; 82805; 82947; 82977; 83036; 83605; 83690; 83735; 84100; 84132; 84155; 84295; 84520; 84702; 85007; 85025; 85027; 85384; 85610; 85730; 86850; 86900; 86901; 87040; 87070; 87086; 87205; 92950; 94002; 94003; 95819; 96374; 96375; 99291; C9113; G0390; J0461; J0610; J0690; J1165; J1644; J1953; J1980; J2060; J2270; J2370; J2543; J3010; J3480; J7030; J7040; J7050; L0150; L0172